=== PATIENT | female | born 1980 | race Hispanic/Latino ===

== ENCOUNTER 2018-01-22 06:03 | Inpatient (IN) | payer BC ==
[2018-01-22] MEDS ORDERED: PROMETHAZINE 25 MG/ML VIAL IV PRN (06:10)
[2018-01-22] MEDS ORDERED: Ringers Lactate 1,000 ML IV PRN (06:10)
[2018-01-22] MEDS ORDERED: BUTORPHANOL 1 MG/ML INJ IV PRN (06:10)
[2018-01-22] MEDS ORDERED: OXYTOCIN/LR 20 UNIT/1,000 ML BAG IV SCH ×2 (07:00→15:00)
[2018-01-22] MEDS ORDERED: Ringers Lactate 1,000 ML IV SCH (07:00)
[2018-01-22 07:09] VITALS: BMI 46.3
[2018-01-22] MEDS ORDERED: LIDOCAINE 1% MPF 30 ML VIAL SQ ONE (07:12)
[2018-01-22] MEDS ORDERED: CARBOPROST TROME 250 MCG/ML IM ONE (07:24)
[2018-01-22] MEDS ORDERED: METHYLERGONOVINE 0.2MG/ML AMP IM ONE (07:24)
[2018-01-22 07:46] LABS: RPR Titer ND
[2018-01-22 07:53] LABS: Absolute Lymphocytes (CBC) 1.7 K/uL (0.7-4.9); Absolute Monocytes 0.7 K/uL (0.1-1.3); Absolute Neutrophil 6.5 K/uL (1.8-8.0); Basophils % 0.2 % (0-1.3); Eosinophils % 0.9 % (0-4.4); Hematocrit 34.4 % (36.0-45.0); Lymphocytes % 18.6 % (15.3-44.8); MCV 89.8 fL (80-100); Monocytes % 8.2 % (3.3-12.3); RBC Red Blood Cell Count 3.82 M/uL (3.86-4.86); Urine Appearance CLOUDY; Urine Bilirubin NEGATIVE (NEG); Urine Blood 2+ (NEG); Urine Color YELLOW; Urine Glucose NEGATIVE (NEG); Urine Protein 2+ (NEG); Urine Specific Gravity 1.025 (1.005-1.030); Urine Urobilinogen 0.2 mg/dL (0.2-1.0)
[2018-01-22 07:54] LABS: Urine Microscopic Reflex ORDER UMIC
[2018-01-22 08:13] LABS: Urine Bacteria >50 /HPF (<20); Urine Culture Reflex Order REFLEXED
--- NOTE | 2018-01-22 08:23 | PREOPHP ---
Date of Admission: 01/22/2018 History: Ms. Díaz is a 37-year-old female, 5, para 1-2-1-3, now at 37 an d 5/7th weeks gestation. She will be admitted tomorrow for induction of labor secondary to the edema , elevated blood pressure, 2+ proteinuria. I feel she has mild -induced hypertension as lit tle to nothing to be gained by prolonging at this point. She denies any bad headaches, rig ht upper quadrant pain, or visual changes. Past Medical History: Please see record. Family History: Please see record. Review of Systems: She denies headache or visual changes. She denies recent cough, cold, fever, or chills. No recent n ausea or vomiting. Infant has been active. She denies any breast lumps. Physical Examination: General: Reveals obese female, no apparent distress. Neck: Supple without adenopathy or thyromegaly. Lungs: Clear. Cardiac Exam: Regular rate and rhythm without murmurs. Breasts: Not examined. Abdomen: 37 cm fundal height. heart tones well heard in lower quadrant, vertex presentation. Pelvic Exam: Cervix noted to be 50% effaced, 2+ cm dilated, vertex at -2 station. Extremities: 2+ lower extremity edema with normal reflexes. Impression: A 37+ week , mild -induced hypertension, advanced maternal age, histor y of labor, history of rapid labor. Plan: The patient will be admitted tomorrow for induction of labor. WALDEMAR/LOU Voice ID: [id number]
[2018-01-22] MEDS ORDERED: IBUPROFEN 200 MG TAB PO PRN (14:58)
[2018-01-22] MEDS ORDERED: ACETAMINOPHEN 500 MG TAB PO PRN (14:58)
[2018-01-22] MEDS ORDERED: METHYLERGONOVINE 0.2 MG TAB PO PRN (14:58)
[2018-01-22] MEDS ORDERED: CARBOPROST TROME 250 MCG/ML IM PRN (14:58)
[2018-01-22] MEDS ORDERED: ONDANSETRON 4 MG (ODT) TAB PO PRN (14:58)
[2018-01-22] MEDS ORDERED: METHYLERGONOVINE 0.2MG/ML AMP IM PRN (14:58)
--- NOTE | 2018-01-22 15:00 | P.BOP ---
Preoperative diagnosis: 37+ week , AMA, mild PIH Postoperative diagnosis: Same, delivery viable female infant Primary procedure: induction, delivery Estimated blood loss: 300ml ebl Complications: None Transferred to: Other ([id number])
[2018-01-22 21:52] LABS: RPR (Rapid Plasma Reagin) NON-REACT (NON-REACT)
[2018-01-23 15:34] VITALS: BP 128/75; TEMP 98
--- NOTE | 2018-01-25 09:05 | DN ---
Surgeon: Curly Bell MD Mrs. Díaz is a 37-year-old female, 5, para 1-2-0-3 at 37+ weeks gestation , admitted for induction of labor secondary to edema, proteinuria, and rising blood pressure. I susp ect she has mild -induced hypertension. She is noted to be approximately 2 cm on admission after Pitocin induction of labor and placement and artificial rupture of membranes. She had a first stage of labor 5 hours and 25 minutes, second stage of labor of 12 minutes. She delivered by spontan eous controlled vaginal delivery over intact perineum, a 5 pounds 9 ounce female infant. Pitocin IV was given after delivery. The infant after delayed cord clamping, the cord was clamped, cut, and the infant placed on mother's upper abdomen. Cord blood was obtained. The placenta was spontaneously e xpelled and appeared to be intact. Intrauterine exam revealed no retained placental fragments. [place] zunilda fundal massage and investigate the intrauterine cavity produced little to no additional blood lo ss. The patient received 1 mg Stadol for analgesia during her labor late in the course. Estimated t otal blood loss was approximately 300 mL. Quantitative blood loss at the time of delivery was noted to be 285 mL. WALDEMAR/LOU Voice ID: [id number] Report ID: [id number]
--- NOTE | 2018-01-26 09:39 | DS ---
Date of Discharge: 01/23/2018 Hospital Discharge Diagnoses: 1.37+ week . 2.Mild -induced hypertension. 3.Advanced maternal age. Complications: None. Procedures: Pitocin induction of labor, artificial rupture of membranes, spontaneous controlled vagi nal delivery of viable female . Hospital Course: The patient is a 37-year-old female, 5, para 1-2-0-3 at 37 + weeks gestation with edema, rising blood pressure, and proteinuria. Because of this, she is admitt ed for induction of labor. She had an uneventful labor and delivery of a 5 pound 9 ounce female infa nt. She was dismissed on the first day with good blood pressure readings and to be seen b ack in my office in 1 week for followup. Lab work included an admission hemoglobin and hematocrit of 12.2 and 34.4, dismissal hematocrit of 30.9. Urinalysis was suspicious for a contaminated urine spe cimen. She has Rh positive blood type, rubella immune. She was dismissed with routine post vaginal delivery activity restrictions. WALDEMAR/LOU Voice ID: [id number] Report ID: [id number]
[2018-01-26 22:43] LABS: HBsAG Nonreactive (Nonreactive)
== END 2018-01-23 18:00 | disposition home or self-care (01) | DRG 807 ==
LOC: 2ND-WC 06:03
PROVIDERS: ADMIT Specialist; ATTEND Specialist
PROC: 10E0XZZ Delivery of Products of Conception, External Approach (ICD-10-PCS; principal; 2018-01-23)
PROC: 3E033VJ Introduction of Other Hormone into Peripheral Vein, Percutaneous Approach (ICD-10-PCS; 2018-01-23)
PROC: 10907ZC Drainage of Amniotic Fluid, Therapeutic from Products of Conception, Via Natural or Artificial Opening (ICD-10-PCS; 2018-01-23)
DX: O14.04 Mild to moderate pre-eclampsia, complicating childbirth (principal); Z37.0 Single live birth; O12.24 Gestational edema with proteinuria, complicating childbirth; Z3A.37 37 weeks gestation of pregnancy
CPT/HCPCS: 36415; 81003; 81015; 85014; 85025; 86592; 86850; 86900; 86901; 87086; 87088; 87340; J0595; J2210; J2590